=== PATIENT | female | born 1995 | race Caucasian/White ===

== ENCOUNTER 2020-07-11 01:08 | Outpatient (CLI) | payer OTHER, SELFPAY ==
[2020-07-11 18:19] LABS: SARS-CoV-2 RNA PCR Negative
== END 2020-07-11 01:09 | disposition home or self-care (01) ==
LOC: ANHCOVIDDT 01:08
PROVIDERS: PCP Physician Assistant; Visit Provider Obstetrics & Gynecology
DX: Z01.812 Encounter for preprocedural laboratory examination (principal); Z20.828 Contact with and (suspected) exposure to other viral communicable diseases
CPT/HCPCS: 87635; C9803; U0003

== ENCOUNTER 2020-07-13 00:56 | Day surgery (SDC) | payer OTHER, SELFPAY ==
[2020-05-24 15:58] VITALS: BMI 42.3
[2020-07-02 12:56] VITALS: BMI 39.3
--- NOTE | 2020-07-12 11:32 | WPDANESEPPF ---
Anes - Initial Pre Proc Eval Procedure: Operation Date: 07/13/20 11:30 Proposed Procedures p Hysteroscopy, Removal Foreign Body, Dilation and Curettage - Jonatan Vogt MD Date/Time: 07/12/20 11:32 Surgeon: Jonatan Vogt MD Pre Op Diagnosis: retained IUD Patient Data Age: 24 Gender: F Height: 1.63 m Weight: 103.87 kg Allergies Allergy/AdvReac Type Severity Reaction Status Date / Time No Known Allergies Allergy Unverified 07/02/20 12:57 Home Medications Medication Instructions Recorded Confirmed Type magnesium 200 mg PO DAILY 07/02/20 07/02/20 History multivitamin 1 tablet PO DAILY 07/02/20 07/02/20 History Patient hx anesthesia problems: none Family hx anesthesia problems: none PMFSH Past Medical History Medical History Anxiety Family History Family History Mother Heart disease Diabetes mellitus Hypertension Acute myocardial infarction AA (alcohol abuse) Sibling Asthma ADD (attention deficit disorder) Social History Social History Smoking status: Never smoker Second hand tobacco smoke exposure: No Alcohol intake: current Drinks per week: 1 Substance use: never Substance use type: does not use Living arrangements: with family 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, 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 Gender identity (if verbalized by the patient): Female Spiritual care concerns: No Agree to blood products: Yes Anes - Eval Final PreProcedure Day of Procedure 07/12/20 11:32 Patient weight: obese Heart: regular rate and rhythm Lungs: clear to auscultation and normal air movement Airway: Mallampati scale class II Neurological: alert and oriented Last oral intake: >/= 8 hours ASA classification: II Emergent: no Anesthetic plan: proceed Anesthesia type and monitoring: general GIVS and standard monitoring Informed Consent: The patient's anesthetic plan and its attendant risks and benefits were discussed with the patient/family/POA. Questions were solicited and answers provided to the satisfaction of the patient/family/POA.
--- NOTE | 2020-07-12 17:01 | PM.IMHP ---
H&P: HPI History of Present Illness Date/Time: 07/12/20 17:01 Chief complaint: retained IUD Narrative: Gwendolyn Leo is a 24 year old female with a retained IUD per Ultrasound who underwent unsuccessful retrieval attempts in my office who is now being taken to the OR for hysteroscopic identification of location and removal of IUD with D&C I explained her condition procedure and risks bleeding infection uterine perforation and the risk of anesthesia. She understands accepts and agrees to proceed Review of Systems Review of Systems: All systems reviewed & are unremarkable except as noted in HPI and below Constitutional: Constitutional: Reports no additional constitutional complaints Eyes: Eyes: Reports no additional eye complaints ENT: Reports system reviewed and no additional complaints, except as documented Cardiovascular: Cardiovascular: Reports no additional cardiovascular complaints Respiratory: Respiratory: Reports no additional respiratory complaints Gastrointestinal: Gastrointestinal: Reports no additional gastrointestinal complaints Genitourinary: Genitourinary: Reports no additional female genitourinary complaints Musculoskeletal: Musculoskeletal: Reports no additional musculoskeletal complaints Integumentary/Breasts: Skin/Breast: Reports system reviewed and no additional complaints, except as docu Neurologic: Reports system reviewed and no additional complaints, except as documented Psychiatric: Psychiatric: Reports no additional psychiatric complaints Endocrine: Endocrine: Reports no additional endocrine complaints Hematologic/Lymphatic: Hematologic/Lymphatic: Reports no additional hematologic/lymphatic complaints Allergic/Immunologic: Allergic/Immunologic: Reports no additional allergic/immunologic complaints [facility] Past Medical History Medical History Anxiety Family History Family History Mother Heart disease Diabetes mellitus Hypertension Acute myocardial infarction AA (alcohol abuse) Sibling Asthma ADD (attention deficit disorder) Social History Social History Smoking status: Never smoker Second hand tobacco smoke exposure: No Alcohol intake: current Drinks per week: 1 Substance use: never Substance use type: does not use Living arrangements: with family Occupation/Education: occupation Additional occupation/education comments: [employer], 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 Gender identity (if verbalized by the patient): Female Sexual Orientation (if Verbalized by the Patient): Straight or Heterosexual Spiritual care concerns: No Agree to blood products: Yes Meds Home Medications and Allergies Home Medications Medication Instructions Recorded Confirmed Type magnesium 200 mg PO DAILY 07/02/20 07/02/20 History multivitamin 1 tablet PO DAILY 07/02/20 07/02/20 History Allergies Allergy/AdvReac Type Severity Reaction Status Date / Time No Known Allergies Allergy Unverified 07/02/20 12:57 Exam Const: General: no acute distress HENMT: Head: normal to inspection Ears: hearing grossly normal bilaterally General nose exam: Normal external nose present Face and sinus: normal facial exam Mouth: Yes Normal oral and palatal mucosa present Teeth and gingiva: dentition normal Throat: posterior oropharynx normal Eyes: General: appearance normal, both eyes and all related structures Neck: Neck: normal visual inspection and full ROM Thyroid: thyroid normal Chest: Chest palpation & inspection: normal inspection of the chest Breast/axilla inspection: normal inspection of the breasts Resp: Effort & Inspection: normal respiratory effort Auscultation: clear to auscultation bilaterally Cardio: Rate: regular rate Rhythm: regular rhythm GI: Inspection: normal to inspection GI Palp: Yes Sof
[2020-07-13] VITALS (7 sets, daily range): BP systolic 98–126; BP diastolic 55–83; PULSE 62–91; RESP 14–20; TEMP 36.1–36.2; O2SAT 98–100
[2020-07-13] MEDS: LACTATED RINGERS 1,000 ML 30 ML IV CONT (09:55)
[2020-07-13] MEDS: ACETAMINOPHEN 500 MG TABLET 1000 MG PO (10:00)
--- NOTE | 2020-07-13 10:00 | WPDHPUPDATE1 ---
History and Physical Update Update Date/Time: 07/13/20 10:00 History and Physical has been reviewed, including an updated exam of the patient. There are NO changes in the patient's condition. Risks, benefits, and alternatives have been discussed and questions answered. Patient agrees to proceed with procedure. Hysteroscopy with D&C and removal of retained IUD
--- NOTE | 2020-07-13 10:01 | PM.PROC ---
Procedure Note - Detailed Date of procedure: 07/13/20 Pre-op diagnosis: retained IUD Post-op diagnosis: same Procedure performed: Hysteroscopy with D&C and removal of IUD Anesthesia: MAC Surgeon: Jonatan Vogt MD Drains: No Packing: No Pathology: yes Complications: No immediate complications Condition: stable Disposition: same day
[2020-07-13] MEDS: ceFAZolin SODIUM 1 GM VIAL IV PUSH (11:52)
[2020-07-13] MEDS: KETOROLAC 30 MG/ML VIAL (*BKC) IV PUSH (12:07)
--- NOTE | 2020-07-13 12:20 | PM.PROC ---
Procedure Note - Detailed Date of procedure: 07/13/20 Pre-op diagnosis: retained IUD Post-op diagnosis: same (successful removal of iud) Procedure performed: hysteroscopy D&C removal of IUD Description of procedure: informed consent was obtained and the patient was taken to the operating room OR room 5. She was placed in a supine position and given IV general anesthesia and an LMA was placed. After adequate anesthesia the patient was placed in the in Brice stirrups in semi lithotomy position and prepped and draped in the usual sterile fashion and a time-out was performed. A speculum was placed in the vagina and the single-tooth tenaculum was placed on the anterior lip of the cervix and the uterus sounded to 8 cm. Hegar dilators to a number 7 was followed by hysteroscopic examination of the uterine cavity using saline as a distending media. I was able to identify the retained IUD in the right cornua of the uterus with strings attached. After removal of the hysteroscope I used a polyp forceps and successfully retrieved the IUD from the fundus. I then performed a curettage of the endometrial cavity and sent off endometrial curettings for pathologic examination with the IUD. Post curettage examination of the uterus with the hysteroscope revealed normal tubal ostia bilaterally normal fundus normal anterior posterior endometrium normal isthmic and cervix there was minimal bleeding the single-tooth tenaculum was removed the speculum was removed sponge stick was used to cleanse the vagina and following this the procedure was completed. The patient was extubated in the operating room taken to the recovery room in stable condition. Antibiotic prophylaxis 1 g Ancef given VTE prevention SCDs No complications Counts correct Disposition patient desires condoms for contraception at this time. Anesthesia: GLMA (ezra) Surgeon: Jonatan Vogt MD Internal Communications Intern: ariane flanagan allie Estimated blood loss (mL): 50 IV fluids (mL): 1,000 Urine output (mL): 750 Drains: No Packing: No Pathology: yes (emc with iud(foreign body)) Complications: No immediate complications Condition: stable Disposition: PACU Findings: Findings: 1. Retained IUD in the fundus of the uterus with string attached 2. Normal endometrium and uterine cavity per hysteroscopic exam 3. Uterus size 10 cm with 8 cm cavity
[2020-07-13] MEDS: ONDANSETRON INJ 4 MG/2 ML VIAL IV PUSH (13:30)
== END 2020-07-13 13:45 | disposition home or self-care (01) ==
PROVIDERS: PCP Physician Assistant; Visit Provider Obstetrics & Gynecology
PROC: 0U5B8ZZ Destruction of Endometrium, Via Natural or Artificial Opening Endoscopic (ICD-10-PCS; CPT 58563; principal; 2020-07-13 11:30)
DX: Z30.432 Encounter for removal of intrauterine contraceptive device (principal); F41.9 Anxiety disorder, unspecified
CPT/HCPCS: 58562; 88305; A9270; J0690; J1100; J1885; J2250; J2405; J2704; J3010; J7030; J7120

== ENCOUNTER 2021-02-05 08:29 | Emergency (ER) | payer OTHER, SELFPAY ==
--- NOTE | ~2021-02-05 | XR_ITS ---
EXAMINATION: XR chest 2V 02/05/2021 08:56 INDICATION: Right-sided chest pain PROCEDURE: 2 view chest COMPARISON: No prior studies for comparison. FINDINGS: The lungs are clear. The cardiomediastinal silhouette is within normal limits. There are no pleural effusions. There is no pneumothorax suspected. IMPRESSION: 1: NO ACUTE CARDIOPULMONARY DISEASE. Reviewed, dictated and finalized at location A.
--- NOTE | 2021-02-05 08:33 | ED.CHESTPAIN ---
HPI - Chest Pain General Chief Complaint: Chest Pain Stated Complaint: chest, back pain Time Seen by Provider: 02/05/21 08:31 Source: patient Mode of arrival: ambulatory Limitations: no limitations History of Present Illness HPI narrative: Patient is a healthy 25-year-old female who presents for evaluation of chest pain. Patient states she has had right-sided chest pain over the past 2 hours, described as pleuritic in nature, worse when she takes a deep breath or moves. She denies associated shortness of breath, does report palpitations as well as nausea. Patient also had experienced chest pain last night associated with an episode of nonbilious, nonbloody emesis. No emesis this morning. Patient denies history of Covid. No fever, chills, abdominal pain. Patient does state the pain radiates from the right chest to the right back. No flank pain. No dysuria or hematuria. Patient does not believe she is . She is not on any control or hormonal therapy. She does not smoke. No history of coagulopathy in the family. No cough or hemoptysis. No recent travel. Related Data Home Medications Medication Instructions Recorded Confirmed sertraline [Zoloft] 50 mg PO DAILY 02/05/21 02/05/21 Allergies Allergy/AdvReac Type Severity Reaction Status Date / Time No Known Allergies Allergy Unverified 07/02/20 12:57 Review of Systems Review of Systems: Narrative: CONSTITUTIONAL: Denies fever, chills, or sweats. ENT: Denies rhinorrhea, congestion CARDIOVASCULAR: Reports chest pain and palpitations, denies edema RESPIRATORY: Denies cough or dyspnea. GASTROINTESTINAL: Denies abdominal pain, reports nausea, vomiting has resolved GENITOURINARY: Denies dysuria or hematuria. SKIN: Denies rash or itching. MUSCULOSKELETAL: Reports radiation of pain to the back NEUROLOGIC: Denies headache, numbness, or weakness. 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 EYES: PERRLA and EOMI. ENT: Nares clear, no rhinorrhea or epistaxis. Mucous membranes moist. NECK: Supple. CHEST: No respiratory distress, breathing even and non labored, no reproducible chest wall pain HEART: Tachycardic rate, sinus rhythm ABDOMEN:Non distended, non tender EXTREMITIES: Normal range of motion. No edema. No calf tenderness bilaterally. SKIN: Warm, dry, no rash. NEURO:No focal deficits. Alert and oriented x3 Course Vital Signs Vital signs: Vital Signs Temperature 36.6 C 02/05/21 09:02 Pulse Rate 125 H 02/05/21 09:02 Respiratory Rate 18 02/05/21 09:02 Blood Pressure 138/83 02/05/21 09:02 Pulse Oximetry 99 02/05/21 09:02 Temperature 36.6 C 02/05/21 14:05 Pulse Rate 81 02/05/21 14:05 Respiratory Rate 16 02/05/21 14:05 Blood Pressure 123/67 02/05/21 12:53 Pulse Oximetry 96 02/05/21 14:05 MDM - Chest Pain MDM Narrative Medical decision making narrative: Patient presented for evaluation of chest pain. Pain is not reproducible, does not seem to be MSK in nature. Patient's EKG and labs are with some abnormal findings. She is tachycardic, no evidence of right heart st
[2021-02-05 09:02] VITALS: BP 138/83; PULSE 125; RESP 18; TEMP 36.6; O2SAT 99
[2021-02-05 09:22] LABS: Basophils Percent Auto 0.2 % (0.2-1.2); Eosinophils Absolute Auto 0.1 K/mm3 (0-0.3); Eosinophils Percent Auto 0.5 % (0-4.4); Hematocrit 40.8 % (37.0-47.0); Hemoglobin 13.3 g/dL (12.0-15.0); Immature Granulocyte Absolute 0.06 K/mm3 (0.00-0.031); Immature Granulocyte Percent A 0.4 % (0-0.5); Lymphocytes Absolute Auto 1.32 K/mm3 (0.9-3.2); Lymphocytes Percent Auto 8.7 % (18.3-44.2); Mean Corpuscular HGB Conc 32.6 g/dl (32-36); Mean Corpuscular Hemoglobin 26.5 pg (26-34); Mean Corpuscular Volume 81.4 fl (80-100); Mean Platelet Volume 10.4 fl (7.4-10.4); Monocytes Absolute Auto 0.9 K/mm3 (0.1-0.6); Monocytes Percent Auto 5.9 % (2.6-8.5); Neutrophils Absolute Auto 12.8 K/mm3 (1.3-6.7); Neutrophils Percent Auto 84.3 % (45.5-73.1); Platelet Count Result 316 k/mm3 (150-375); Red Blood Count 5.01 M/mm3 (4.2-5.4); Red Cell Distribution Width 13.1 % (11.5-14.5); White Blood Count 15.2 K/mm3 (4.5-10.0)
[2021-02-05] MEDS: ASPIRIN 81 MG CHEWABLE TABLET 324 MG PO (09:23)
[2021-02-05] MEDS: ONDANSETRON INJ 4 MG/2 ML VIAL IV PUSH (09:23)
[2021-02-05 09:34] LABS: INR 0.9; Partial Thromboplastin Time 26.1 SECONDS (22.3-36.8); Prothrombin Time 12.7 Seconds (11.1-14.7)
[2021-02-05 09:41] LABS: D Dimer 0.27 ug/mL (<0.48)
[2021-02-05 09:42] LABS: Anion Gap 8 mmol/L (8-16); Blood Urea Nitrogen 11 mg/dL (7-17); Calcium 9.3 mg/dL (8.4-10.2); Carbon Dioxide 26 mmol/L (22-30); Chloride 106 mmol/L (98-107); Estimated CRCL calculation 122 ml/min; Estimated Glomerular Filt Rate > 60; Glucose 113 mg/dL (65-105); Potassium 3.8 mmol/L (3.4-5.0); Sodium 140 mmol/L (137-145)
[2021-02-05 09:56] LABS: NT Pro B Type Natriuretic Pept 73 PG/ML (5-100); Troponin I < 0.012 ng/mL (0.000-0.034)
[2021-02-05 10:12] VITALS: PULSE 73
--- NOTE | 2021-02-05 10:51 | ECG_ITS ---
Measurements Intervals [place] Rate: 107 P: 19 ND: 140 QRS: 30 QRSD: 81 T: 9 QT: 300 QTc: 402 Interpretive Statements SINUS TACHYCARDIA NONSPECIFIC ST & T-WAVE ABNORMALITY- ANTEROLAT/INF LEADS BASELINE ARTIFACT- I, II, III, AVR, AVL, AVF, V1-V6 ABNORMAL ECG Electronically Signed On 02-05-2021 11:50:17 CDT by Inder Vásquez D.O.
[2021-02-05 12:53] VITALS: BP 123/67; PULSE 87; RESP 16; O2SAT 98
[2021-02-05 13:19] LABS: Troponin I < 0.012 ng/mL (0.000-0.034)
--- NOTE | 2021-02-05 13:25 | ECG_ITS ---
Measurements Intervals [place] Rate: 80 P: 11 AL: 150 QRS: 13 QRSD: 93 T: -1 QT: 362 QTc: 418 Interpretive Statements SINUS RHYTHM VOLTAGE CRITERIA FOR LVH CONSIDER INFERIOR INFARCT, AGE INDETERMINATE BORDERLINE T WAVE ABNORMALITY- ANTERIOR LEADS BASELINE ARTIFACT- I, II, III, AVR, AVL, V1-V2 ABNORMAL ECG Electronically Signed On 02-05-2021 14:00:57 CDT by Inder Vásquez D.O.
[2021-02-05 14:05] VITALS: PULSE 81; RESP 16; TEMP 36.6; O2SAT 96
== END 2021-02-05 14:06 | disposition home or self-care (01) ==
PROVIDERS: Emergency Provider Emergency Medicine; PCP Physician Assistant
DX: R07.89 Other chest pain (principal); F41.9 Anxiety disorder, unspecified; R00.0 Tachycardia, unspecified; R94.31 Abnormal electrocardiogram [ECG] [EKG]
CPT/HCPCS: 36415; 71046; 80048; 81025; 83880; 84484; 85025; 85380; 85610; 85730; 93005; 96374; 99284; A9270; J2405

== ENCOUNTER 2022-01-11 10:35 | Emergency (ER) | payer OTHER, SELFPAY ==
[2022-01-11 10:41] VITALS: BP 141/79; PULSE 103; RESP 29; O2SAT 100
[2022-01-11 10:43] VITALS: BP 141/79; PULSE 95; RESP 20; TEMP 36.9; O2SAT 100
--- NOTE | 2022-01-11 10:51 | ED.NAVMDI ---
HPI - Nausea/Vomiting/Diarrhea General Chief complaint: Nausea/Vomiting/Diarrhea Stated complaint: vomiting Time Seen by Provider: 01/11/22 10:38 Source: patient Mode of arrival: ambulatory Limitations: no limitations History of Present Illness HPI Narrative: 26-year-old female presents with nausea vomiting x6 days. Patient states she is unable to keep anything down. Patient denies any fevers or diarrhea or constipation. Patient states she took a home test that was positive. Patient is a . Patient denies any vaginal bleeding or abdominal pain. Patient states she [facility] MD elicited complaint: nausea and vomiting Onset (ago): day(s) (6) Associated nausea: Yes Associated abdominal pain: No Location of pain: none Related Data Home Medications Medication Instructions Recorded Confirmed buspirone mg 01/11/22 famotidine 01/11/22 fluoxetine mg 01/11/22 01/11/22 Allergies Allergy/AdvReac Type Severity Reaction Status Date / Time No Known Allergies Allergy Unverified 07/02/20 12:57 Review of Systems Review of Systems: All systems reviewed & are unremarkable except as noted in HPI and below Constitutional: Constitutional: Reports no additional constitutional complaints Eyes: Eyes: Reports no additional eye complaints ENT: Reports system reviewed and no additional complaints, except as documented Cardiovascular: Cardiovascular: Reports no additional cardiovascular complaints Respiratory: Respiratory: Reports no additional respiratory complaints Gastrointestinal: Gastrointestinal: Reports nausea and Reports vomiting Genitourinary: Comments: Last menstrual period was November 16 Musculoskeletal: Musculoskeletal: Reports no additional musculoskeletal complaints Integumentary/Breasts: Skin/Breast: Reports system reviewed and no additional complaints, except as docu Neurologic: Reports system reviewed and no additional complaints, except as documented Psychiatric: Psychiatric: Reports no additional psychiatric complaints Endocrine: Endocrine: Reports no additional endocrine complaints Hematologic/Lymphatic: Hematologic/Lymphatic: Reports no additional hematologic/lymphatic complaints Allergic/Immunologic: Allergic/Immunologic: Reports no additional allergic/immunologic complaints [facility] Past Medical History Medical History (Updated 01/11/22 @ 12:33 by Mathew Padron APRN) Anxiety Family History Family History Mother Heart disease Diabetes mellitus Hypertension Acute myocardial infarction AA (alcohol abuse) Sibling Asthma ADD (attention deficit disorder) Social History Social History Smoking status: Never smoker Second hand tobacco smoke exposure: No Alcohol intake: current Drinks per week: 1 Substance use: never Substance use type: does not use 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, 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 Gender identity (if verbalized by the patient): Female Sexual Orientation (if Verbalized by the Patient): Straight or Heterosexual Spiritual care concerns: No Agree to blood products: Yes Exam Narrative: General appearance: Well-developed, well-nourished Skin: Normal color Head: Normocephalic, nontraumatic Eyes: Clear conjunctiva ENT: Oropharynx normal, ears normal, nose normal Neck: Supple, nontender Chest and respiratory: Airway patent, no respiratory distress, no accessory muscle use Heart: Regular rate/rhythm Abdomen: Soft, nontender, no organomegaly, quiet bowel sounds Vascular: Normal peripheral pulses, normal capillary refill. Musculoskeletal: Normal range of motion, nontender back Neurologic: Alert and oriented ?3, BEHAVIORAL HEALTH CONSULTANT is normal as tested, no gross motor deficit
[2022-01-11] MEDS: SODIUM CHLORIDE 0.9% IV 1,000 ML 999 ML IV CONT (10:57)
[2022-01-11] MEDS: ONDANSETRON INJ 4 MG/2 ML VIAL IV PUSH (10:57)
[2022-01-11 11:00] VITALS: PULSE 74; RESP 23; O2SAT 99
--- NOTE | 2022-01-11 11:03 | PC.NURSE ---
PT was only able to void enough for beside HCG test.
[2022-01-11 11:08] LABS: Basophils Percent Auto 0.3 % (0.2-1.2); Eosinophils Absolute Auto 0.1 K/mm3 (0-0.3); Eosinophils Percent Auto 1.2 % (0-4.4); Hematocrit 37.7 % (37.0-47.0); Hemoglobin 11.7 g/dL (12.0-15.0); Immature Granulocyte Absolute 0.04 K/mm3 (0.00-0.031); Immature Granulocyte Percent A 0.4 % (0-0.5); Lymphocytes Absolute Auto 2.21 K/mm3 (0.9-3.2); Lymphocytes Percent Auto 22.8 % (18.3-44.2); Mean Corpuscular Hemoglobin 23.8 pg (26-34); Mean Corpuscular Volume 76.6 fl (80-100); Mean Platelet Volume 10.5 fl (7.4-10.4); Monocytes Absolute Auto 0.5 K/mm3 (0.1-0.6); Monocytes Percent Auto 5.6 % (2.6-8.5); Neutrophils Absolute Auto 6.8 K/mm3 (1.3-6.7); Neutrophils Percent Auto 69.7 % (45.5-73.1); Platelet Count Result 319 k/mm3 (150-375); Red Blood Count 4.92 M/mm3 (4.2-5.4); White Blood Count 9.7 K/mm3 (4.5-10.0)
[2022-01-11 11:10] LABS: Alanine Aminotransferase 31 U/L (4-35); Albumin Level 4.3 g/dL (3.5-5.1); Alkaline Phosphatase 73 U/L (38-126); Anion Gap 9 mmol/L (8-16); Aspartate Amino Transferase 27 U/L (14-36); Bilirubin,Total 0.6 mg/dL (0.2-1.3); Blood Urea Nitrogen 11 mg/dL (7-17); Calcium 9.2 mg/dL (8.4-10.2); Carbon Dioxide 23 mmol/L (22-30); Chloride 104 mmol/L (98-107); Estimated CRCL calculation 131 ml/min; Estimated Glomerular Filt Rate > 60; Glucose 124 mg/dL (65-110); Lipase 40 U/L (23-300); Potassium 3.8 mmol/L (3.4-5.0); Sodium 136 mmol/L (137-145)
[2022-01-11 11:15] VITALS: PULSE 77; RESP 19; O2SAT 100
[2022-01-11 11:30] VITALS: PULSE 80; RESP 20; O2SAT 99
--- NOTE | 2022-01-11 11:30 | PC.NURSE ---
PT states she doesnt feel like she can urinate at the moment. Will recheck.
[2022-01-11 12:00] VITALS: PULSE 73; RESP 27; O2SAT 99
--- NOTE | 2022-01-11 12:13 | PC.NURSE ---
Patient ambulatory to the restroom.
[2022-01-11 12:29] LABS: Add Urine Microscopic? YES; Appearance Urine Clear (Clear); Bacteria Urine Trace /hpf; Bilirubin Urine Negative (Negative); Blood Urine Negative (Negative); Color Urine Yellow (Yellow); Glucose Urine UA Negative (Negative); Ketones Urine Negative (Negative); Leukocyte Esterase Ur Trace LEU/UL (Negative); Mucus Urine Rare /lpf; Nitrate Urine Negative (Negative); Protein Urine Negative (Negative); RBC Urine 0-2 /hpf (0-2); Specific Grav Ur 1.013 (1.001-1.035); Squamous Epithelial Cell Urine Few /hpf (Few); Urobilinogen Urine Negative mg/dL (<2.0); WBC Urine 0-3 /hpf
--- NOTE | 2022-01-16 08:38 | PC.NURSE ---
LATE ENTRY This note is being entered to document information to the patient's record. The following information was omitted on [01/16/2022], by [Rowan Kowalski RN ]. Ns stopped at 1157 on 01/11/2022.
== END 2022-01-11 12:42 | disposition home or self-care (01) ==
PROVIDERS: Emergency Provider Nurse Practitioner Family; PCP Physician Assistant
DX: O21.9 Vomiting of pregnancy, unspecified (principal); O99.340 Other mental disorders complicating pregnancy, unspecified trimester; F41.9 Anxiety disorder, unspecified; Z3A.00 Weeks of gestation of pregnancy not specified
CPT/HCPCS: 36415; 80053; 81001; 81025; 83690; 84702; 85025; 96361; 96374; 99284; J2405; J7030

== ENCOUNTER 2022-08-25 14:29 | Emergency (ER) | payer OTHER, SELFPAY ==
[2022-08-25] VITALS (8 sets, daily range): BP systolic 117–144; BP diastolic 67–79; PULSE 71–83; RESP 12–25; TEMP 36.4; O2SAT 100
--- NOTE | ~2022-08-25 | US_ITS ---
EXAMINATION: US abdomen limited DATE: 08/25/2022 16:43 INDICATION: Right upper quadrant pain TECHNIQUE: Multiple grayscale and Doppler ultrasound images of the abdomen were obtained. COMPARISON: None available FINDINGS: The head, body, and tail of the pancreas are normal. The liver is normal with normal echoge nicity and echotexture. No surface nodularity. Normal hepatopetal flow in the main portal vein. There are stones or sludge in the nondistended gallbladder. There is no gallbladder wall thickening or per icholecystic fluid. The normal common bile duct measures 3 mm. There was no sonographic Arias sign. IMPRESSION: 1. Stones or sludge in the otherwise normal-appearing gallbladder. No additional findings of cholecys titis. Reviewed, dictated and finalized at location A. IMPRESSION: 1. Stones or sludge in the otherwise normal-appearing gallbladder. No additiona l findings of cholecystitis.
[2022-08-25 14:54] LABS: Basophils Percent Auto 0.3 % (0.2-1.2); Eosinophils Absolute Auto 0.2 K/mm3 (0-0.3); Eosinophils Percent Auto 1.2 % (0-4.4); Hematocrit 36.5 % (37.0-47.0); Hemoglobin 10.9 g/dL (12.0-15.0); Immature Granulocyte Absolute 0.06 K/mm3 (0.00-0.031); Immature Granulocyte Percent A 0.5 % (0-0.5); Lymphocytes Absolute Auto 1.55 K/mm3 (0.9-3.2); Lymphocytes Percent Auto 12.5 % (18.3-44.2); Mean Corpuscular HGB Conc 29.9 g/dl (32-36); Mean Corpuscular Hemoglobin 23.5 pg (26-34); Mean Corpuscular Volume 78.7 fl (80-100); Mean Platelet Volume 10.2 fl (7.4-10.4); Monocytes Absolute Auto 0.7 K/mm3 (0.1-0.6); Neutrophils Absolute Auto 9.9 K/mm3 (1.3-6.7); Neutrophils Percent Auto 79.5 % (45.5-73.1); Platelet Count Result 365 k/mm3 (150-375); Red Blood Count 4.64 M/mm3 (4.2-5.4); Red Cell Distribution Width 14.3 % (11.5-14.5); White Blood Count 12.4 K/mm3 (4.5-10.0)
[2022-08-25 15:04] LABS: Alanine Aminotransferase 43 U/L (6-35); Albumin Level 4.2 g/dL (3.5-5.1); Alkaline Phosphatase 114 U/L (38-126); Anion Gap 11 mmol/L (8-16); Aspartate Amino Transferase 65 U/L (14-36); Bilirubin,Total 0.5 mg/dL (0.2-1.3); Blood Urea Nitrogen 11 mg/dL (7-17); Calcium 9.6 mg/dL (8.4-10.2); Carbon Dioxide 25 mmol/L (22-30); Chloride 105 mmol/L (98-107); Estimated CRCL calculation 116 ml/min; Estimated Glomerular Filt Rate > 60; Glucose 103 mg/dL (65-110); Lipase 63 U/L (23-300); Potassium 4.3 mmol/L (3.4-5.0); Sodium 141 mmol/L (137-145)
[2022-08-25 15:28] LABS: Platelet Estimate Adequate (Adequate); Schistocytes None Seen (NORMAL)
[2022-08-25 15:30] LABS: Atypical Lymphocytes Present; Hypochromasia 1+ (NORMAL)
--- NOTE | 2022-08-25 16:06 | ED.ABDPAIN ---
HPI - Abdominal Pain General Chief Complaint: Abdominal Pain Stated Complaint: abd pain Time Seen by Provider: 08/25/22 15:59 Source: RN notes reviewed History of Present Illness HPI narrative: Patient presents emergency room from home for abdominal pain. Patient states she had pain in the right upper quadrant that radiate around to her back began proximally 4 hours ago. States the pain was sharp and stabbing in nature associate with nausea states she took ibuprofen the pain is improved at this time but is still mildly achy she denies any fevers or chills she denies any pain anywhere else in her abdomen denies any vomiting or diarrhea. States she is 2 weeks from vaginal delivery with no complications Related Data Home Medications Medication Instructions Recorded Confirmed buspirone 5 mg tablet mg 01/11/22 famotidine 20 mg tablet 01/11/22 fluoxetine 20 mg tablet mg 01/11/22 01/11/22 Allergies Allergy/AdvReac Type Severity Reaction Status Date / Time No Known Allergies Allergy Unverified 08/25/22 16:15 Review of Systems Review of Systems: Gen.: Denies fevers or chills ENT: Denies congestion Respiratory: Denies shortness of breath or cough CV: Denies chest pain or palpitations GI: See HPI Musculoskeletal: Denies back pain or muscle pain Neuro: Denies numbness, tingling, weakness or focal weakness Skin: Denies rash Except as documented, all other systems reviewed and negative [facility] Past Medical History Medical History (Updated 08/25/22 @ 17:47 by Arnold Rubio DO) Anxiety Family History Family History Mother Heart disease Diabetes mellitus Hypertension Acute myocardial infarction AA (alcohol abuse) Sibling Asthma ADD (attention deficit disorder) Social History Social History Smoking status: Never smoker Second hand tobacco smoke exposure: No Alcohol intake: current Drinks per week: 1 Substance use: never Substance use type: does not use 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, 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 Gender identity (if verbalized by the patient): Female Sexual Orientation (if Verbalized by the Patient): Straight or Heterosexual Spiritual care concerns: No Agree to blood products: Yes Exam Narrative: APPEARANCE: No acute distress, nontoxic, resting in bed HEENT: Normocephalic, atraumatic, OMM RESPIRATORY: No respiratory distress, clear to auscultation bilaterally with no rhonchi wheezing or rales CARDIOVASCULAR: RRR s murmur ABDOMINAL: Soft nondistended tender palpation right upper quadrant no tenderness right lower quadrant, left lower quadrant left upper quadrant rebound MUSCULOSKELETAl: Moves all extremities. No clubbing, cyanosis or edema. NEURO: Awake and alert. Following commands, speech normal, no focal deficits SKIN:: Warm, dry. Normal Color PSYCHIATRIC: Normal affect/mood Course Course Emergency Course: Discussed with patient's LEGAL ADVISER Dr. Mccollum at [facility] discussed work-up as well as blood pressures in agreement patient may discharge at this time and follow-up as an Patient states that they are feeling much better at this time. States abdominal pain has improved.. Repeat abdominal exam shows the patient's abdomen to be soft with no surgical abdomen present. Discussed with patient results of workup and diagnosis. Discussed need for follow-up with primary care physician, reasons to return to the emergency department in proper use of medication. Patient understands and agrees to current treatment plan discussed with patient ultrasound findings discussed need for follow-up with PCP and general surgery Vital Signs Vital signs: Vital Signs Temperature 97.6 F 08/25/22 14:35 Pulse Rate 72 08/25/22 14:35 Respiratory Rate 18 08/25/22 14:35 Blood Pressure 144/77 H 08/25/22 14:35 Pulse Oximetry 100 08/25/22 14:3
[2022-08-25 16:08] LABS: Add Urine Microscopic? YES; Appearance Urine Cloudy (Clear); Bilirubin Urine Negative (Negative); Blood Urine 3+ (Negative); Color Urine Straw (Yellow); Glucose Urine UA Negative (Negative); Ketones Urine Negative (Negative); Leukocyte Esterase Ur 2+ LEU/UL (Negative); Mucus Urine Rare /lpf; Nitrate Urine Negative (Negative); Protein Urine Negative (Negative); RBC Urine 0-2 /hpf (0-2); Squamous Epithelial Cell Urine Occasional /hpf (Few); Urobilinogen Urine Negative mg/dL (<2.0)
[2022-08-25] MEDS: SODIUM CHLORIDE 0.9% IV 1,000 ML 999 ML IV CONT (16:14)
[2022-08-25] MEDS: ONDANSETRON INJ 4 MG/2 ML VIAL IV PUSH (16:15)
[2022-08-25 16:17] LABS: Pregnancy On Board Control Positive; Urine Pregnancy Test Negative
[2022-08-25 16:33] LABS: Specific Grav Ur 1.003 (1.001-1.035)
[2022-08-25] MEDS: CEPHALEXIN 500 MG CAPSULE PO (17:52)
== END 2022-08-25 18:15 | disposition home or self-care (01) ==
PROVIDERS: Emergency Provider Emergency Medicine; PCP Physician Assistant
DX: K80.20 Calculus of gallbladder without cholecystitis without obstruction (principal); N39.0 Urinary tract infection, site not specified; F41.9 Anxiety disorder, unspecified
CPT/HCPCS: 36415; 76705; 80053; 81001; 81025; 83690; 85025; 87086; 87088; 87147; 96365; 96375; 99284; A9270; J0131; J2405; J7030

== ENCOUNTER 2023-07-10 11:12 | Emergency (ER) | payer SELFPAY ==
[2023-07-10 11:13] VITALS: BP 145/69; PULSE 74; RESP 17; TEMP 36.2; O2SAT 100
[2023-07-10 13:07] LABS: Appearance Urine Clear (Clear); Bacteria Urine None Seen /hpf; Bilirubin Urine Negative (Negative); Blood Urine 1+ (Negative); Color Urine Dark Yellow (Yellow); Glucose Urine UA Negative (Negative); Ketones Urine Negative (Negative); Leukocyte Esterase Ur 1+ LEU/UL (Negative); Need Manual Microscopic Reviewed; Nitrate Urine Positive (Negative); Non Pathogenic Casts 0-2; Protein Urine Negative (Negative); RBC Urine 0-2 /hpf (0-2); Specific Grav Ur 1.006 (1.001-1.035); Squamous Epithelial Cell Urine None seen /hpf (Few); WBC Urine 0-5 /hpf; pH Urine 5.5 (5.0-9.0)
[2023-07-10 13:09] LABS: Add Urine Microscopic? YES
--- NOTE | 2023-07-10 13:44 | ED.FEMALEGU ---
HPI - Female Genitourinary General Chief complaint: Urogenital-Female Stated complaint: uti flank pain Time Seen by Provider: 07/10/23 13:44 Source: patient Mode of arrival: ambulatory History of Present Illness HPI Narrative: 27 years old white female who presented to the ED with lower back and right back pain started 2 to 3 days ago, was diagnosed of urinary tract infection yesterday started on Bactrim twice daily for 7 days, patient received 2 doses of Bactrim at that time. Patient is already on Zofran at home as needed. She denies any fever, chills, vomiting. Complaining of burning urinary sensation with dysuria. Patient requested a prescription for naproxen. Related Data Home Medications Medication Instructions Recorded Confirmed buspirone 5 mg tablet mg 01/11/22 famotidine 20 mg tablet 01/11/22 fluoxetine 20 mg tablet mg 01/11/22 01/11/22 Allergies Allergy/AdvReac Type Severity Reaction Status Date / Time No Known Allergies Allergy Verified 07/10/23 12:52 Review of Systems Review of Systems: All systems reviewed & are unremarkable except as noted in HPI and below PMFSH Past Medical History Medical History Anxiety Family History Family History Mother Heart disease Diabetes mellitus Hypertension Acute myocardial infarction AA (alcohol abuse) Sibling Asthma ADD (attention deficit disorder) Social History Social History Smoking status: Never smoker Second hand tobacco smoke exposure: No Alcohol intake: current Drinks per week: 1 Substance use: never Substance use type: does not use Living arrangements: with family Occupation/Education: occupation Additional occupation/education comments: [employer], 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 Gender identity (if verbalized by the patient): Female Sexual Orientation (if Verbalized by the Patient): Straight or Heterosexual Spiritual care concerns: No Agree to blood products: Yes Exam Narrative: General appearance: Well-developed, well-nourished Skin: Normal color Head: Normocephalic, nontraumatic Eyes: Clear conjunctiva ENT: Oropharynx normal, ears normal, nose normal Neck: Supple, nontender Chest and respiratory: Airway patent, no respiratory distress, no accessory muscle use Heart: Regular rate/rhythm Abdomen: Mild tenderness right flank and lower back bilaterally, no bruises, no skin rash Vascular: Normal peripheral pulses, normal capillary refill. Musculoskeletal: Normal range of motion, nontender back Neurologic: Alert and oriented ?3, [employer] is normal as tested, no gross motor deficit Course Vital Signs Vital signs: Vital Signs Temperature 36.2 C L 07/10/23 11:13 Pulse Rate 74 07/10/23 11:13 Respiratory Rate 17 07/10/23 11:13 Blood Pressure 145/69 H 07/10/23 11:13 Pulse Oximetry 100 07/10/23 11:13 Oxygen Delivery Room Air 07/10/23 11:13 Temperature 36.2 C L 07/10/23 11:13 Pulse Rate 74 07/10/23 11:13 Respiratory Rate 17 07/10/23 11:13 Blood Pressure 145/69 H 07/10/23 11:13 Pulse Oximetry 100 07/10/23 11:13 Oxygen Delivery Room Air 07/10/23 11:13 MDM - Female Genitourinary MDM Narrative Medical decision making narrative: Back pain with dysuria and frequency and burning sensation. 3 days ago. Started on Bactrim yesterday. Still having pain. Requested naproxen. Urine analysis today came back positive for urinary tract infection. Patient denies any fever, chills, nausea, vomiting. Acute urinary cystitis is my concern. No imaging or extra bloo
[2023-07-10 13:53] VITALS: PULSE 84; RESP 16; O2SAT 100
== END 2023-07-10 13:57 | disposition home or self-care (01) ==
PROVIDERS: Emergency Provider Emergency Medicine; PCP Physician Assistant
DX: N39.0 Urinary tract infection, site not specified (principal); F41.9 Anxiety disorder, unspecified
CPT/HCPCS: 81001; 81025; 99283